=== PATIENT | male | born 1975 | race Hispanic/Latino ===

== ENCOUNTER 2018-08-06 06:32 | Day surgery (SDC) | payer SELFPAY ==
[2018-08-06] MEDS ORDERED: Ondansetron PF 4 MG/2 ML Vial ONE ×2 (06:50→16:16)
[2018-08-06] MEDS ORDERED: Morphine 4 MG/ML VIAL ONE (06:50)
[2018-08-06 07:04] LABS: #Eosinphils 0.1 thou/uL (0.0-0.7); #Lymphocytes 1.4 thou/uL (1.20-3.40); #Monocytes 0.9 thou/uL (0.11-0.59); #Neutrophils 9.9 thou/uL (1.40-6.50); %Basophils 0.2 % (0.0-1.0); %Eosinophils 0.6 % (0.0-10.0); %Lymphocytes 11.4 % (21.0-51.0); %Monocytes 6.9 % (0.0-10.0); %Neutrophils 80.9 % (42.0-75.0); Hemoglobin 17.7 g/dL (14.0-18.0); Mean Corpuscular HGB CONC 34.6 g/dL (32.0-36.0); Mean Corpuscular Hemoglobin 29.5 pg (27.0-31.0); Mean Platelet Volume 7.9 fL (7.4-10.4); Platelet Count 180 thou/uL (130-400); RBC Distribution Width 11.7 % (11.5-14.5); Red Blood Cell (RBC) Count 6.02 mill/uL (4.70-6.10); White Blood Cell (WBC) Count 12.2 thou/uL (4.8-10.8)
[2018-08-06 07:25] LABS: ALT (SGPT) 23 U/L (8-55); AST (SGOT) 19 U/L (5-34); Alkaline Phosphatase 83 U/L (40-150); Anion Gap 16 mmol/L (10-20); BUN (Urea Nitrogen) 9 mg/dL (8.9-20.6); Bilirubin, Total 1.3 mg/dL (0.2-1.2); Calc. Creatinine Clearance 0 mL/min (70-130); Calcium 9.9 mg/dL (7.8-10.44); Carbon Dioxide 24 mmol/L (22-29); Chloride 103 mmol/L (98-107); Estimated GFR-MDRD Greater than 90; Globulin 3.2 g/dL (2.4-3.5); Glucose 182 mg/dL (70-105); Potassium 3.2 mmol/L (3.5-5.1); Protein, Total 8.2 g/dL (6.0-8.3); Sodium 140 mmol/L (136-145)
[2018-08-06 07:55] LABS: Bilirubin Negative (Negative); Blood, Urine Negative (Negative); Clarity CLEAR (Clear); Glucose, Urine (Dipstick) 100 mg/dL (Negative); Leukocyte Negative (Negative); Nitrite Negative (Negative); Protein, Urine (Dipstick) Negative (Neg-Trace); Specific Gravity, Urine 1.021 (1.002-1.036); Urobilinogen 0.2 mg/dL (0.2-1.0); pH, Urine 7.5 (5.0-9.0)
[2018-08-06] MEDS ORDERED: Piperacillin/Tazobactam 3.375 GM VIAL ONE (07:56)
--- NOTE | 2018-08-06 08:02 | CT ---
CT OF ABDOMEN AND PELVIS PERFORMED WITH CONTRAST ENHANCEMENT: HISTORY: Right lower quadrant pain. FINDINGS: The patient experienced an episode of vomiting during the examination and images are in a more delaye d late venous phase. Lung bases are clear of infiltrates. Liver, spleen, pancreas, and gallbladder regions are unremarkable. The right and left adrenal glands and right and left kidneys are normal in size. Hypodensities invol ving both kidneys are statistically most likely cysts. No significant periaortic or mesenteric adeno linda. CT OF PELVIS PERFORMED WITH CONTRAST ENHANCEMENT: The appendix is enlarged. There is periappendiceal inflammatory change. No abscess or free fluid. N o adenopathy or mass. IMPRESSION: CT findings compatible with appendicitis. POS: [facility]
[2018-08-06] MEDS ORDERED: Bupivacaine/Epinephrine 0.25% 30 ML VIAL ONE (09:32)
[2018-08-06] MEDS ORDERED: Famotidine/PF 20 mg/2ml Vial ONE (09:38)
[2018-08-06] MEDS ORDERED: Fentanyl 100 MCG/2 ML VIAL ONE ×2 (09:38→11:58)
[2018-08-06] MEDS ORDERED: Midazolam HCl 2 mg/2 ml Vial ONE (09:59)
[2018-08-06] MEDS ORDERED: ISOVUE-370 76%-LOCM 1 ML ONE (11:29)
--- NOTE | 2018-08-06 11:48 | PDOC.OP ---
Operative Note - Operative Note Operative Note: PROCEDURE: Laparoscopic appendectomy SURGEON: Jeimy Singh M.D. DATE OF PROCEDURE: 08/06/2018 PREOPERATIVE DIAGNOSIS: Appendicitis POSTOPERATIVE DIAGNOSIS: Appendicitis HISTORY: Patient with a one day history of right lower quadrant pain and appendicitis on CT scan. FINDINGS: Acutely inflamed appendicitis without evidence of perforation. DESCRIPTION OF PROCEDURE: After informed consent was obtained and appropriate antibiotics continued, the patient was taken to the operating room and placed in the supine position and general endotracheal anesthesia was administered. The bladder was decompressed with a Batista catheter and the abdomen was prepped and draped in the standard sterile fashion. Local anesthesia was infused to the skin and subcutaneous tissues superior to the umbilicus. A transverse skin incision was made and a Veress needle placed into the abdominal cavity and carbon dioxide gas insufflated without difficulty. Opening pressure was less than 5. Carbon dioxide gas was insufflated to an intra-abdominal pressure 15 and the patient tolerated this well. The Veress needle was withdrawn and a [place] port advanced under direct laparoscopic vision into the abdominal cavity. Two additional ports were placed in the suprapubic and left lateral abdomen under direct laparoscopic vision after local anesthesia was infused at these sites. The appendix was identified and appeared inflamed but not perforated. The appendix was grasped by the mesoappendix and elevated. The mesoappendix was then sequentially ligated and divided down to the base of the appendix, which was normal in appearance and was clearly seen to be at the confluence of the tenia. A laparoscopic stapler were placed around the base of the appendix and the appendix was divided, placed into an EndoCatch bag and drawn out through the suprapubic incision. The suprapubic trocar was then replaced and the operative site was easily irrigated to clear. The suprapubic trocar was removed and the fascia closed under direct laparoscopic vision with a 0 Vicryl suture on a GraNee needle with excellent technical result. The left lateral trocar was then removed and hemostasis verified. Carbon dioxide gas was desufflated through the umbilical trocar which was then removed. Due to the patient's thin body habitus, the fascia at the umbilicus was clearly visible and this was closed under direct vision with the 0 Vicryl suture on a UR 6 needle with excellent technical result. The skin incisions were irrigated and additional local anesthesia infused at each site. The skin was closed with 4-0 subcuticular Monocryl sutures and Dermabond dressings were placed. The patient was extubated and taken to the recovery room in good condition. Estimated blood loss was minimal. There were no complications. SPECIMEN: Appendix
[2018-08-06] MEDS ORDERED: Acetaminophen 325 MG TAB PO PRN (13:42)
[2018-08-06] MEDS ORDERED: HYDROcodone/Acetaminophen 5/325 mg Tablet PO PRN (13:43)
[2018-08-06] MEDS ORDERED: Promethazine 25 MG TAB PO PRN (13:43)
[2018-08-06] MEDS ORDERED: Ertapenem 1 GM in Sodium Chloride 0.9% 100 ML IVPB SCH (13:45)
[2018-08-06] MEDS ORDERED: HYDROcodone/Acetaminophen 5/325 mg Tablet ONE (15:46)
--- NOTE | 2018-08-06 16:01 | HP ---
CHIEF COMPLAINT: Abdominal pain. HISTORY: Mr. Saúl Moore is a 43-year-old man, who woke up this morning at 3 o'clock with right-sided abdominal pain. The pain became worse with time and he was having nausea and felt warm, so he came into the emergency room, where he was diagnosed with acute appendicitis by CT. He has had nausea, but no vomiting and has not ran any high fevers or had chills. No precipitating or alleviating factors except for pain medication in the ER; however, he is still hurting even after pain medication. PAST MEDICAL HISTORY: Hypertension and chronic back pain. PAST SURGICAL HISTORY: None. MEDICATIONS: 1. Amlodipine. 2. Naproxen p.r.n. ALLERGIES: NO KNOWN DRUG ALLERGIES. FAMILY HISTORY: Hypertension. SOCIAL HISTORY: He drinks socially on a rare occasion, but does not smoke or use illicit drugs. REVIEW OF SYSTEMS: As per HPI. Otherwise, negative. PHYSICAL EXAMINATION: VITAL SIGNS: Temperature in the ER was 99. Vital signs have been stable. GENERAL: Reveals a healthy-appearing man, in no acute distress, although he appears uncomfortable, especially with movement. He is not flushed or toxic in appearance. He is not jaundiced or icteric. HEENT: Unremarkable. NECK: Supple without lymphadenopathy or thyroid nodules. HEART: Regular in its rate and rhythm without murmurs, rubs, or gallops. LUNGS: Clear to auscultation bilaterally. ABDOMEN: Soft and nondistended without palpable masses or hernias. He is diffusely mildly tender to palpation with severe tenderness in the right lower quadrant. He indicates the point of greatest tenderness at McBurney's point. EXTREMITIES: Warm and well perfused without edema. NEUROLOGIC: No focal deficits. PSYCHIATRIC: Alert, oriented, and appropriate. LABORATORY DATA: White count is elevated at 12,000 with a left shift. Electrolytes are unremarkable except for a slightly low potassium. CT images are reviewed and I agree with the written report. The appendix is enlarged with periappendiceal stranding consistent with acute appendicitis. ASSESSMENT: Acute appendicitis. PLAN: Laparoscopic appendectomy. The patient's diagnosis and recommended treatment were discussed with him and his . Inherent risks of surgery were also discussed. These include, but are not limited to bleeding, infection, risks of anesthesia, damage to nearby structures including bowel and blood vessels, need for open surgery, and need for other procedures. They understand, accepts these risks and wished to proceed. He received Zosyn in the emergency room just before and has been posted emergently for the operating room. Job ID: [id number]
[2018-08-06] MEDS ORDERED: Succinylcholine Chloride 20 MG/ML 10 ml SYRINGE FS ONE (16:16)
[2018-08-06] MEDS ORDERED: Glycopyrrolate 0.2 MG/ML 5 ML SYRINGE ONE (16:16)
[2018-08-06] MEDS ORDERED: Lidocaine 1% PF 5 ML VIAL ONE (16:16)
[2018-08-06] MEDS ORDERED: Rocuronium Bromide 10 MG/ML (10ML VIAL) ONE (16:16)
[2018-08-06] MEDS ORDERED: Ketorolac Tromethamine 30 MG/ML VIAL ONE (16:16)
[2018-08-06] MEDS ORDERED: Dexamethasone 20 MG/5 ML VIAL ONE (16:16)
[2018-08-06] MEDS ORDERED: PROPOFOL 200 MG/20 ML VIAL ONE (16:16)
== END 2018-08-06 16:20 | disposition home or self-care (01) ==
LOC: ERS 06:32 → SDC 08:30
PROVIDERS: ATTEND Surgery
PROC: 0DTJ4ZZ Resection of Appendix, Percutaneous Endoscopic Approach (ICD-10-PCS; principal; 2018-08-06)
DX: K35.80 Unspecified acute appendicitis (principal); I10 Essential (primary) hypertension; G89.29 Other chronic pain; M54.9 Dorsalgia, unspecified; Z79.899 Other long term (current) drug therapy
CPT/HCPCS: 74177; 80053; 81003; 83605; 85025; 87086; 88304; 96361; 96365; 96374; 96375; J0131; J1100; J1335; J1885; J2001; J2250; J2270; J2405; J2543; J2704; J3010; J7050; S0028

== ENCOUNTER 2022-04-29 17:09 | Emergency (ER) | payer BC, SELFPAY ==
[2022-04-29 17:49] LABS: #Eosinphils 0.1 thou/uL (0.0-0.7); #Monocytes 0.4 thou/uL (0.11-0.59); #Neutrophils 3.6 thou/uL (1.40-6.50); %Basophils 0.4 % (0.0-1.0); %Eosinophils 2.1 % (0.0-10.0); %Lymphocytes 32.3 % (21.0-51.0); %Neutrophils 58.2 % (42.0-75.0); Hemoglobin 17.6 g/dL (14.0-18.0); Mean Corpuscular HGB CONC 33.3 g/dL (32.0-36.0); Mean Corpuscular Hemoglobin 29.6 pg (27.0-31.0); Mean Corpuscular Volume 88.8 fL (78.0-98.0); Mean Platelet Volume 8.1 fL (7.4-10.4); Platelet Count 179 thou/uL (130-400); RBC Distribution Width 11.8 % (11.5-14.5); Red Blood Cell (RBC) Count 5.94 mill/uL (4.70-6.10); White Blood Cell (WBC) Count 6.2 thou/uL (4.8-10.8)
[2022-04-29] MEDS ORDERED: Labetalol HCl 100 MG/20 ML VIAL ONE (17:58)
[2022-04-29] MEDS ORDERED: hydrALAZINE 20 MG/ML VIAL ONE (18:00)
[2022-04-29 18:02] LABS: ALT (SGPT) 53 U/L (8-55); AST (SGOT) 31 U/L (5-34); Albumin 4.7 g/dL (3.5-5.0); Alkaline Phosphatase 93 U/L (40-110); Anion Gap 13 mmol/L (10-20); BUN (Urea Nitrogen) 13 mg/dL (8.9-20.6); Bilirubin, Total 1.1 mg/dL (0.2-1.2); Calc. Creatinine Clearance 0 mL/min (70-130); Calcium 9.5 mg/dL (7.8-10.44); Carbon Dioxide 27 mmol/L (22-29); Chloride 103 mmol/L (98-107); Estimated GFR 83; Globulin 3.2 g/dL (2.4-3.5); Glucose 186 mg/dL (70-105); Potassium 3.6 mmol/L (3.5-5.1); Protein, Total 7.9 g/dL (6.0-8.3); Sodium 139 mmol/L (136-145)
[2022-04-29 18:27] LABS: Bilirubin Negative (Negative); Blood, Urine Negative (Negative); Clarity Turbid (Clear); Glucose, Urine (Dipstick) 150 mg/dL (Negative); Ketone, Urine Negative (Negative); Leukocyte Negative Leu/uL (Negative); Nitrite Negative (Negative); Protein, Urine (Dipstick) 10 mg/dL (Neg-Trace); Specific Gravity, Urine 1.015 (1.002-1.036); Urobilinogen Normal mg/dL (Less than 2)
[2022-04-29 18:35] LABS: Amphetamine Not Detected (NotDetected); Barbiturates Screen Not Detected (NotDetected); Benzodiazepine Screen Not Detected (NotDetected); Cocaine Metabolite Screen Not Detected (NotDetected); Methadone Not Detected (NotDetected); Methamphetamine Not Detected (NotDetected); Opiate Screen Not Detected (NotDetected); Oxycodone Screen Not Detected (NotDetected); Phencyclidine (PCP) Not Detected (NotDetected); THC/Cannabinoid Screen Not Detected (NotDetected); Tricyclic Screen Not Detected (NotDetected)
== END 2022-04-29 18:43 | disposition home or self-care (01) ==
LOC: ERS 17:09
DX: I10 Essential (primary) hypertension (principal); F17.200 Nicotine dependence, unspecified, uncomplicated
CPT/HCPCS: 70450; 80053; 80306; 81003; 83880; 84484; 85025; 93005; 96374; 96375; J0360